=== PATIENT | female | born 1945 | race Caucasian/White ===

== ENCOUNTER 2019-03-23 09:51 | Day surgery (SDC) | payer MEDICARE ==
[2019-03-20 12:13] LABS: BASOPHILS # (AUTO) 0.01 x10^3/uL (0-0.1); BASOPHILS % (AUTO) 0 % (0-1); EOSINOPHILS # (AUTO) 0.12 x10^3/uL (0-0.4); EOSINOPHILS % (AUTO) 2 % (1-7); LYMPHOCYTES % (AUTO) 19 % (22-44); MD NO; MEAN CORPUSCULAR HEMOGLOBIN 31.6 pg (27.0-34.8); MEAN CORPUSCULAR HGB CONC 33.4 g/dL (32.4-35.8); MEAN CORPUSCULAR VOLUME 94.4 fL (80-100); MEAN PLATELET VOLUME 7.8 fL (7.4-10.4); MONOCYTES # (AUTO) 0.55 x10^3/uL (0.2-0.8); MONOCYTES % (AUTO) 8 % (2-9); NEUTROPHILS # (AUTO) 4.82 x10^3/uL (1.8-6.8); NEUTROPHILS % (AUTO) 71 % (42-75); PLATELET COUNT 175 x10^3/uL (130-400); RED BLOOD COUNT 4.36 x10^6/uL (3.82-5.3)
[2019-03-20 12:25] LABS: INTERNATIONAL NORMALIZED RATIO 0.95 (0.93-1.1)
[2019-03-20 12:27] LABS: ALBUMIN 3.4 g/dL (3.4-5.0); ANION GAP 5 mmol/L (5-15); CHLORIDE 109 mmol/L (98-107)
[2019-03-20 12:30] LABS: ALANINE AMINOTRANSFERASE 31 U/L (12-78); ALKALINE PHOSPHATASE 108 U/L (45-117); BILIRUBIN,TOTAL 0.7 mg/dL (0.2-1.0); CREATININE 0.84 mg/dL (0.55-1.02); TOTAL PROTEIN 7.7 g/dL (6.4-8.2)
[~2019-03-23] VITALS: Ht 154.9 cm; Wt 106.0 kg
[~2019-03-23 09:51] MED LIST: ANAS1TAB PO; CHOL100011 PO; LISI30TA4 PO
[2019-03-23] MEDS ORDERED: LACTATED RINGERS 1,000 ML IV SCH (10:37)
[2019-03-23] MEDS ORDERED: BUPIVACAINE/PF 0.25% ONE (10:54)
[2019-03-23] MEDS ORDERED: SCOPOLAMINE PATCH, 1.5MG PATCH.TD72 TD ONE (11:00)
[2019-03-23] MEDS ORDERED: DIAZEPAM 5 MG TABLET PO ONE (11:00)
[2019-03-23] MEDS ORDERED: ACETAMINOPHEN 500 MG TABLET PO ONE (11:00)
[2019-03-23] MEDS ORDERED: GABAPENTIN 300 MG CAPSULE PO ONE (11:00)
[2019-03-23 11:01] VITALS: BP 169/93
[2019-03-23] MEDS ORDERED: MIDAZOLAM 1 MG/ML, 2ML ONE (12:00)
[2019-03-23] MEDS ORDERED: FENTANYL PF 250 MCG/5ML ONE (12:00)
[2019-03-23] MEDS ORDERED: DEXAMETHASONE 4 MG/ML, 1ML ONE (12:19)
[2019-03-23] MEDS ORDERED: ROCURONIUM 10MG/ML,5ML ONE (12:24)
[2019-03-23] MEDS ORDERED: PROPOFOL 10 MG/ML, 20ML ONE (12:24)
[2019-03-23] MEDS ORDERED: SUCCINYLCHOLINE 20 MG/ML, 10ML ONE (12:24)
[2019-03-23] MEDS ORDERED: ONDANSETRON ODT 8 MG PO PRN (13:30)
[2019-03-23] MEDS ORDERED: OXYcodone 5 MG/5 ML ORAL.SOL UDC PO PRN (13:30)
[2019-03-23] MEDS ORDERED: HYDROmorphone 2 MG/ML, 1ML IVPush PRN (13:30)
[2019-03-23] MEDS ORDERED: DIAZEPAM 5 MG/ML, 2ML IVPush PRN (13:30)
[2019-03-23] MEDS ORDERED: hydrALAzine 20 MG/ML, 1ML IV PRN (13:30)
[2019-03-23] MEDS ORDERED: MIDAZOLAM 1 MG/ML, 2ML IV PRN (13:30)
[2019-03-23] MEDS ORDERED: ALBUTEROL SULFATE 2.5 MG/3 ML NPPB PRN (13:30)
[2019-03-23] MEDS ORDERED: PROMETHAZINE 12.5 MG SUPP PR PRN (13:30)
[2019-03-23] MEDS ORDERED: ONDANSETRON 2MG/ML, 2ML IV PRN (13:30)
[2019-03-23] MEDS ORDERED: MEPERIDINE/PF 25MG/ML,1ML IVPush PRN (13:30)
[2019-03-23] MEDS ORDERED: EPHEDRINE 50 MG/ML, 1ML IVPush PRN (13:30)
[2019-03-23] MEDS ORDERED: LABETALOL 5MG/ML, 20ML IV PRN (13:30)
[2019-03-23] MEDS ORDERED: HALOPERIDOL 5 MG/ML IV PRN (13:30)
[2019-03-23] MEDS ORDERED: FENTANYL PF 100 MCG/2ML IV PRN (13:30)
[2019-03-23] MEDS ORDERED: PROMETHAZINE 25 MG/ML, 1ML IV PRN (13:30)
[2019-03-23] MEDS ORDERED: ONDANSETRON 2MG/ML, 2ML ONE (13:38)
[2019-03-23] MEDS ORDERED: SUGAMMADEX 200 MG/2 ML IVPush ONE (13:39)
[2019-03-23] MEDS ORDERED: KETOROLAC 30 MG/1 ML ONE (13:40)
[2019-03-23] MEDS ORDERED: FENTANYL PF 100 MCG/2ML ONE (13:42)
[2019-03-23] MEDS ORDERED: MEPERIDINE/PF 25MG/ML,1ML ONE (14:37)
== END 2019-03-23 17:35 | disposition home or self-care (01) ==
LOC: OUT 09:51 → EDSTATUS 10:00 → OUT 17:35
PROVIDERS: ATTEND Specialist
DX: Z15.01 Genetic susceptibility to malignant neoplasm of breast (principal); N72 Inflammatory disease of cervix uteri; N83.8 Other noninflammatory disorders of ovary, fallopian tube and broad ligament; G47.33 Obstructive sleep apnea (adult) (pediatric); I10 Essential (primary) hypertension; J45.909 Unspecified asthma, uncomplicated; Z79.82 Long term (current) use of aspirin; Z79.01 Long term (current) use of anticoagulants; Z79.899 Other long term (current) drug therapy; Z88.0 Allergy status to penicillin; Z88.2 Allergy status to sulfonamides; Z85.3 Personal history of malignant neoplasm of breast; Z90.13 Acquired absence of bilateral breasts and nipples; Z99.81 Dependence on supplemental oxygen; Z80.3 Family history of malignant neoplasm of breast; Z80.0 Family history of malignant neoplasm of digestive organs
CPT/HCPCS: 36415; 58552; 71046; 74018; 80053; 85025; 85610; 85730; 86304; 86850; 86900; 86923; 88112; 88305; 88307; 93005; J0330; J1100; J1885; J2175; J2250; J2405; J2704; J3010; J3490; J7120

== ENCOUNTER → 2020-03-04 | Outpatient (CLI) | payer MEDICARE | END | disposition home or self-care (01) | LOC: STAR 10:42 | PROVIDERS: ATTEND Anesthesiology | DX: Z01.812 Encounter for preprocedural laboratory examination (principal); Z20.828 Contact with and (suspected) exposure to other viral communicable diseases | CPT/HCPCS: 36415; 87635 ==

== ENCOUNTER 2020-03-08 08:06 | Day surgery (SDC) | payer MEDICARE ==
[~2020-03-08] VITALS: Ht 152.4 cm; Wt 105.9 kg
[2020-03-08] MEDS ORDERED: AMLO-150 PO (08:52)
[2020-03-08] MEDS ORDERED: ALBU6.7H8 INH (08:53)
[2020-03-08 08:56] VITALS: BP 144/82
[2020-03-08] MEDS ORDERED: CHLORHEXIDINE 15 ML UDC MM ONE ×2 (09:00→10:00)
[2020-03-08] MEDS ORDERED: PROPOFOL 10 MG/ML, 20ML ONE (09:29)
[2020-03-08] MEDS ORDERED: DEXAMETHASONE 4 MG/ML, 1ML ONE (09:29)
[2020-03-08] MEDS ORDERED: ONDANSETRON 2MG/ML, 2ML ONE (09:29)
[2020-03-08] MEDS ORDERED: SUCCINYLCHOLINE 20 MG/ML, 10ML ONE (09:29)
[2020-03-08] MEDS ORDERED: ONDANSETRON 2MG/ML, 2ML IVPush PRN (10:00)
[2020-03-08] MEDS ORDERED: LABETALOL 5MG/ML, 20ML IV PRN (10:00)
[2020-03-08] MEDS ORDERED: FENTANYL PF 100 MCG/2ML IV PRN (10:00)
[2020-03-08] MEDS ORDERED: MEPERIDINE/PF 25MG/0.5ML IVPush PRN (10:00)
[2020-03-08] MEDS ORDERED: LACTATED RINGERS 1,000 ML IV SCH (10:00)
[2020-03-08] MEDS ORDERED: ACETAMINOPHEN 325 MG TABLET PO PRN (10:00)
[2020-03-08] MEDS ORDERED: PROMETHAZINE 25 MG/ML, 1ML IVPush PRN (10:00)
[2020-03-08] MEDS ORDERED: OXYcodone 5 MG/5 ML ORAL.SOL UDC PO PRN (10:00)
[2020-03-08] MEDS ORDERED: hydrALAzine 20 MG/ML, 1ML IV PRN (10:00)
[2020-03-08] MEDS ORDERED: HYDROmorphone 1 MG/ML, 1ML INJ IVPush PRN (10:00)
[2020-03-08] MEDS ORDERED: OMNIPAQUE 350 MG/ML, 50 ML BOTTLE ONE (10:22)
== END 2020-03-08 12:45 | disposition home or self-care (01) ==
LOC: OUT 08:06
PROVIDERS: ATTEND Internal Medicine Geriatric Medicine
DX: K86.89 Other specified diseases of pancreas (principal); C25.0 Malignant neoplasm of head of pancreas; K83.1 Obstruction of bile duct; I10 Essential (primary) hypertension; J45.909 Unspecified asthma, uncomplicated; G47.33 Obstructive sleep apnea (adult) (pediatric); Z79.899 Other long term (current) drug therapy; Z85.3 Personal history of malignant neoplasm of breast; Z88.0 Allergy status to penicillin; Z88.2 Allergy status to sulfonamides; Z88.8 Allergy status to other drugs, medicaments and biological substances
CPT/HCPCS: 43242; 43274; 74328; 88172; 88173; 88307; 93005; C1769; C1894; C2625; J0330; J1100; J2250; J2405; J2704; J3010; J7120; Q9967

== ENCOUNTER 2020-03-11 13:02 | Emergency (ER) | payer MEDICARE ==
[~2020-03-11] VITALS: Ht 157.5 cm; Wt 107.4 kg
[~2020-03-11 13:02] MED LIST changes: +ALBU6.7H8 INH; +AMLO-150 PO
--- NOTE | 2020-03-11 13:44 | NUR ---
NIL x1
[2020-03-11 14:38] LABS: BASOPHILS % (AUTO) 0 % (0-1); EOSINOPHILS % (AUTO) 1 % (1-7); LYMPHOCYTES % (AUTO) 8 % (22-44); MEAN CORPUSCULAR HEMOGLOBIN 32.1 pg (27.0-34.8); MEAN CORPUSCULAR HGB CONC 34.4 g/dL (32.4-35.8); MEAN PLATELET VOLUME 8.3 fL (7.4-10.4); MONOCYTES % (AUTO) 12 % (2-9); NEUTROPHILS % (AUTO) 79 % (42-75); PLATELET COUNT 281 x10^3/uL (130-400); RED BLOOD COUNT 4.12 x10^6/uL (3.82-5.3); RED CELL DISTRIBUTION WIDTH 16.8 % (9.6-15.2)
[2020-03-11 14:46] LABS: ALBUMIN 2.6 g/dL (3.4-5.0); ANION GAP 5 mmol/L (5-15); CHLORIDE 99 mmol/L (98-107)
[2020-03-11 14:48] LABS: MD NO
[2020-03-11 14:49] LABS: ALANINE AMINOTRANSFERASE 123 U/L (12-78); ALKALINE PHOSPHATASE 522 U/L (45-117)
[2020-03-11 14:52] LABS: TOTAL PROTEIN 6.7 g/dL (6.4-8.2)
[2020-03-11 15:27] LABS: INTERNATIONAL NORMALIZED RATIO 1.14 (0.93-1.1); PROTHROMBIN TIME 12.1 Seconds (9.6-11.5)
--- NOTE | 2020-03-11 16:43 | NUR ---
PT D/C WITH D/C SUMMARY AND SCRIPTS. ALL QUESTIONS ANSWERED. PT WHEELED TO REGISTRATION DESK BY FOR D/C HOME. PT DENIES ANY OTHER NEEDS PERTAINING TO THIS VISIT AND VERBALIZES NEED FOR F/U WITH PCP.
[2020-03-11 16:44] VITALS: BP 127/85
== END 2020-03-11 16:47 | disposition home or self-care (01) ==
LOC: ED 16:04
DX: R17 Unspecified jaundice (principal); I10 Essential (primary) hypertension
CPT/HCPCS: 36415; 76700; 80053; 83690; 85025; 85610; 99284

== ENCOUNTER 2020-03-15 13:49 | Emergency (ER) | payer MEDICARE ==
[~2020-03-15] VITALS: Ht 152.4 cm; Wt 107.9 kg
[2020-03-15 14:03] VITALS: BP 135/65
--- NOTE | 2020-03-15 14:47 | NUR ---
UNABLE TO FIND PATIENT IN LOBBY OR LOBBY RESTROOM.
[2020-03-15 14:57] LABS: MEAN CORPUSCULAR HEMOGLOBIN 31.9 pg (27.0-34.8); MEAN PLATELET VOLUME 8.5 fL (7.4-10.4); PLATELET COUNT 239 x10^3/uL (130-400); RED BLOOD COUNT 3.91 x10^6/uL (3.82-5.3); RED CELL DISTRIBUTION WIDTH 17.2 % (9.6-15.2)
[2020-03-15 15:07] LABS: ALANINE AMINOTRANSFERASE 174 U/L (12-78); ALBUMIN 2.2 g/dL (3.4-5.0); ANION GAP 5 mmol/L (5-15); CALCIUM 10.2 mg/dL (8.5-10.1); CHLORIDE 103 mmol/L (98-107); CREATININE 0.95 mg/dL (0.55-1.02)
--- NOTE | 2020-03-15 15:07 | NUR ---
NO ANSWER IN LOBBY.
[2020-03-15 15:10] LABS: ALKALINE PHOSPHATASE 479 U/L (45-117); TOTAL PROTEIN 6.4 g/dL (6.4-8.2)
[2020-03-15 15:13] LABS: BILIRUBIN,TOTAL 18.8 mg/dL (0.2-1.0)
[2020-03-15 15:41] LABS: MD YES
[2020-03-15 15:44] LABS: BANDS%(MANUAL) 1 % (0-7); LYMPH#(MANUAL) 0.95 x10^3/uL (1-3.4); LYMPHS% (MANUAL) 10 % (22-44); METAMYELOCYTES# (MANUAL) 0.19 x10^3/uL (0-0); METAMYELOCYTES% (MANUAL) 2 % (0-1); MONOS#(MANUAL) 0.38 x10^3/uL (0.3-2.7); MONOS% (MANUAL) 4 % (2-9); MYELOCYTES# (MANUAL) 0.19 x10^3/uL (0-0); MYELOCYTES% (MANUAL) 2 % (0-0); SEGS% (MANUAL) 81 % (42-75)
[2020-03-15 15:52] LABS: <PLATELET ESTIMATE> ADEQUATE; <PLT MORPHOLOGY> NORMAL PLT MORPH; ANISOCYTOSIS 1+; TARGET CELLS 1+
--- NOTE | 2020-03-15 17:44 | NUR ---
NO ANSWER IN LOBBY.
--- NOTE | 2020-03-15 17:50 | NUR ---
CALLED PATIENT I WAS UNABLE TO LOCATE HER IN THE LOBBY, FOR HER SAFETY, AND NOTIFIED HER OF HER BILIRUBIN LEVEL. SHE HAS LEFT THE ED AND STATES THAT THIS IS BETTER THAN A RECENT READING.
== END 2020-03-15 17:52 | disposition left against medical advice (07) ==
LOC: ED 17:25
DX: R79.9 Abnormal finding of blood chemistry, unspecified (principal)
CPT/HCPCS: 36415; 80053; 83690; 85025; 99283

== ENCOUNTER → 2020-05-18 | Outpatient (CLI) | payer MEDICARE ==
[2020-05-18 13:53] LABS: BASOPHILS % (AUTO) 1 % (0-1); EOSINOPHILS % (AUTO) 1 % (1-7); LYMPHOCYTES % (AUTO) 13 % (22-44); MEAN CORPUSCULAR HEMOGLOBIN 34.7 pg (27.0-34.8); MEAN CORPUSCULAR HGB CONC 33.7 g/dL (32.4-35.8); MEAN PLATELET VOLUME 7.4 fL (7.4-10.4); MONOCYTES % (AUTO) 11 % (2-9); NEUTROPHILS % (AUTO) 75 % (42-75); PLATELET COUNT 217 x10^3/uL (130-400); RED BLOOD COUNT 2.88 x10^6/uL (3.82-5.3); RED CELL DISTRIBUTION WIDTH 17.1 % (9.6-15.2)
[2020-05-18 13:54] LABS: MD NO
[2020-05-18 14:01] LABS: ALANINE AMINOTRANSFERASE 79 U/L (12-78); ALBUMIN 2.4 g/dL (3.4-5.0); ANION GAP 4 mmol/L (5-15); CALCIUM 10.3 mg/dL (8.5-10.1); CHLORIDE 107 mmol/L (98-107); CREATININE 0.71 mg/dL (0.55-1.02)
[2020-05-18 14:04] LABS: ALKALINE PHOSPHATASE 260 U/L (45-117); BILIRUBIN,TOTAL 2.7 mg/dL (0.2-1.0); TOTAL PROTEIN 7.8 g/dL (6.4-8.2)
== END | disposition home or self-care (01) ==
LOC: LAB 13:23
PROVIDERS: ATTEND Family Medicine
DX: C25.9 Malignant neoplasm of pancreas, unspecified (principal)
CPT/HCPCS: 36415; 80053; 85025

== ENCOUNTER → 2020-05-18 | Outpatient (CLI) | payer MEDICARE | END | disposition home or self-care (01) | LOC: STAR 12:34 | PROVIDERS: ATTEND Internal Medicine | DX: Z20.828 Contact with and (suspected) exposure to other viral communicable diseases (principal); K86.89 Other specified diseases of pancreas; K83.1 Obstruction of bile duct | CPT/HCPCS: 87635 ==

== ENCOUNTER 2020-05-24 11:32 | Day surgery (SDC) | payer MEDICARE ==
[~2020-05-24] VITALS: Ht 157.5 cm; Wt 93.1 kg
[2020-05-24] MEDS ORDERED: CHLORHEXIDINE 15 ML UDC ONE (11:55)
[2020-05-24] MEDS ORDERED: CHLORHEXIDINE 15 ML UDC MM ONE (12:00)
[2020-05-24 12:34] VITALS: BP 139/84
[2020-05-24] MEDS ORDERED: LACTATED RINGERS 1,000 ML IV SCH (13:00)
[2020-05-24] MEDS ORDERED: FENTANYL PF 100 MCG/2ML ONE (13:38)
[2020-05-24] MEDS ORDERED: SUCCINYLCHOLINE 20 MG/ML, 10ML ONE (14:08)
[2020-05-24] MEDS ORDERED: ROCURONIUM 10 MG/ML,10ML ONE (14:08)
[2020-05-24] MEDS ORDERED: PROPOFOL 10 MG/ML, 20ML ONE (14:08)
[2020-05-24] MEDS ORDERED: HYDROmorphone 1 MG/ML, 1ML INJ IVPush PRN (14:30)
[2020-05-24] MEDS ORDERED: PROMETHAZINE 25 MG/ML, 1ML IVPush PRN (14:30)
[2020-05-24] MEDS ORDERED: FENTANYL PF 100 MCG/2ML IV PRN (14:30)
[2020-05-24] MEDS ORDERED: GLUCAGON 1 MG ONE (14:30)
[2020-05-24] MEDS ORDERED: MEPERIDINE/PF 25MG/0.5ML IVPush PRN (14:30)
[2020-05-24] MEDS ORDERED: OMNIPAQUE 350 MG/ML, 50 ML BOTTLE ONE (15:43)
== END 2020-05-24 17:05 | disposition home or self-care (01) ==
LOC: OUT 11:32
PROVIDERS: ATTEND Internal Medicine
DX: Z46.59 Encounter for fitting and adjustment of other gastrointestinal appliance and device (principal); K80.51 Calculus of bile duct without cholangitis or cholecystitis with obstruction; C22.1 Intrahepatic bile duct carcinoma; I10 Essential (primary) hypertension; J45.909 Unspecified asthma, uncomplicated; E66.01 Morbid (severe) obesity due to excess calories; Z79.899 Other long term (current) drug therapy; Z85.3 Personal history of malignant neoplasm of breast; Z88.0 Allergy status to penicillin; Z88.2 Allergy status to sulfonamides
CPT/HCPCS: 43264; 43276; 74328; A4648; C1769; C1876; J0330; J1610; J2704; J3010; J7120; Q9967